=== PATIENT | female | born 1965 | race Caucasian/White ===

== ENCOUNTER 2024-06-24 22:12 | Emergency (ER) | payer MEDICAID, SELFPAY ==
[2024-06-24 22:14] VITALS: BP 134/109; PULSE 92; RESP 22; TEMP 36.1; O2SAT 99
--- NOTE | 2024-06-24 22:17 | ED.GENADUL_ITS ---
Discharge Plan Disposition Patient Disposition: Home Condition: Good Discharge Details Clinical Impression: Encounter for removal of nasal packing Primary Care Provider: Unknown,Unknown ED Provider: Lester Sunshine Home Meds and New Rx's Prescriptions: No Action No Known Home Meds Discharge Instructions Instructions: Nosebleeds ED Additional Instructions: Please follow-up with ENT as scheduled. Short-term you should use saline nasal spray and antibiotic ointment as we discussed to keep the nasal mucosal membranes from drying out. Hold pressure as shown for 10 to 15 minutes for rebleeding. Return to ED for prolonged uncontrolled bleeding or other concerns. HPI General Mode of arrival: ambulatory . Date/Time Provider Initiated Documentation: 06/24/24 22:17 . Limitations to Documentation: no limitations . Information obtained by: patient and RN notes reviewed . HPI Narrative: Patient presents to ED with complaint of recurrent nosebleed. Patient was seen at [facility] on Thursday, 5 days ago. She had Merosel packing placed. Packing is still in place and she reports no ENT follow-up until sometime in July. She reports that there is been some blood trickling down the back of her throat at times. She was brought in by her daughter for a recheck. Denies any fever, facial pain, headache. She is not on anticoagulation. Related Data Home Medications ?Medication ?Instructions ?Recorded ?Confirmed Unknown [No Known Home Meds] 06/24/24 06/24/24 Allergies Allergy/AdvReac Type Severity Reaction Status Date / Time Penicillins Allergy Unknown Unknown Verified 06/24/24 22:17 General Stated Complaint: Epistaxis LUL: 3 Review of Systems Narrative: Per HPI Exam Narrative Exam Narrative: Const: WDWN female in NAD. VS per triage. HEENT: NC/AT. Normal facial exam. Right nostril with packing in place. Left nostril unremarkable. Posterior oropharynx clear with no evidence of active bleeding. Neck: Supple. Trachea midline. Lungs: Normal respiratory effort. Neuro: A+O x 3. Normal speech, mentation. Cranial nerves II - XII grossly intact. No gross motor or sensory deficit. Course Vital Signs Vital signs: Vital Signs Temperature 97 F L 06/24/24 22:14 Pulse 92 H 06/24/24 22:14 Respiratory Rate 22 06/24/24 22:14 Blood Pressure 134/109 H 06/24/24 22:14 Pulse Oximetry 99 06/24/24 22:14 Temperature 97 F L 06/24/24 22:14 Temperature Source Temporal Artery Scan 06/24/24 22:14 Pulse 92 H 06/24/24 22:14 Respiratory Rate 22 06/24/24 22:14 Blood Pressure 134/109 H 06/24/24 22:14 Blood Pressure Position Sitting 06/24/24 22:14 Pulse Oximetry 99 06/24/24 22:14 Oxygen Delivery Method Room Air 06/24/24 22:14 Oxygen Flow Rate 0 06/24/24 22:14 Pain Level 0 06/24/24 22:14 Medical Decision Making Patient presenting to ED with packing in the right nostril. This has been in there for 5 days now. There is no evidence of active bleeding. There is no fever, headache, sinus pain or pressure. Packing removed by me. No active bleeding. Will observe for 20 to 30 minutes prior to discharge. No further bleeding. Inspection of the right nostril with no obvious area of pr evious bleeding. Recommend saline nasal spray, gentle application of antibiotic ointment, follow-up to ENT. Return precautions provided. PFSH All Active Problems (Updated 06/24/24 @ 22:52 by Lester Sunshine MD) Encounter for removal of nasal packing (Acute) Social History Smoking/Tobacco Use Status: Current every day Tobacco: How many years used: 20 Quit status: considering quitting Smoking risk assessment performed?: Yes Alcohol Intake: current Alcohol type: wine and hard liquor Substance use type: marijuana Seatbelt use: sometimes Do you feel safe at home: Yes Do you feel safe in your relationship?: Yes
[2024-06-24 22:56] VITALS: BP 107/69; PULSE 90; RESP 18; O2SAT 98
== END 2024-06-24 22:57 | disposition home or self-care (01) ==
LOC: ER 22:59
PROVIDERS: Emergency Provider Emergency Medicine
DX: R04.0 Epistaxis (principal); F17.200 Nicotine dependence, unspecified, uncomplicated
CPT/HCPCS: 99282

== ENCOUNTER 2025-01-16 19:14 | Emergency (ER) | payer MEDICAID, SELFPAY ==
[2025-01-16 19:16] VITALS: BP 151/83; PULSE 85; RESP 18; TEMP 36.1; O2SAT 98
--- NOTE | 2025-01-16 19:44 | ED.GENADUL_ITS ---
Discharge Plan Disposition Patient Disposition: Home Condition: Stable Discharge Details Clinical Impression: Bleeding gums, Thrombocytopenia Primary Care Provider: Unknown,Unknown ED Provider: Manuel Alexander Home Meds and New Rx's Prescriptions: New clindamycin HCl 150 mg capsule 450 mg PO TID 7 Days Qty: 63 0RF chlorhexidine gluconate [Paroex Oral Rinse] 0.12 % mouthwash 15 ml mucous membrane BID 14 Days Qty: 1893 0RF Discontinued ciprofloxacin HCl 500 mg tablet 500 mg PO BID Discharge Instructions Additional Instructions: Your platelet count was low which is likely due to chronic alcohol use. Try to cut back or stop drinking alcohol can improve this. I would recommend following up with your primary care provider and having your CBC blood test rechecked. Follow-up with a dentist as well. If you feel more ill or have new symptoms such as diffuse rashes, severe headaches or chest pain return to the emergency department for reevaluation. HPI General Mode of arrival: ambulatory . Date/Time Provider Initiated Documentation: 01/16/25 19:28 . Limitations to Documentation: no limitations . Information obtained by: patient . History of Present Illness 59 year old F presents to the emergency department with the chief complaint of gingival bleeding, described as moderate, Quality is described as aching, Patient started experiencing this week(s) (1) and it has been intermittent. No relieving factors improve symptom(s), No exacerbating factors reported . Patient notes no other symptoms.. Patient did receive the following treatments prior to arrival, none Related Data Home Medications ?Medication ?Instructions ?Recorded ?Confirmed chlorhexidine gluconate 0.12 % 15 ml mucous membrane B ID 14 days 01/16/25 mouthwash (Paroex Oral Rinse) #1,893 mL clindamycin HCl 150 mg capsule 450 mg (3 x 150 mg) PO TID 7 days 01/16/25 #63 caps Previous Rx's ?Medication ?Instructions ?Recorded chlorhexidine gluconate 0.12 % 15 ml mucous membrane B ID 14 days 01/16/25 mouthwash (Paroex Oral Rinse) #1,893 mL clindamycin HCl 150 mg capsule 450 mg (3 x 150 mg) PO TID 7 days 01/16/25 #63 caps Allergies Allergy/AdvReac Type Severity Reaction Status Date / Time Penicillins Allergy Unknown Unknown Verified 01/16/25 19:22 General Stated Complaint: GenMedical LUL: 3 Review of Systems All systems reviewed & are unremarkable except as noted in HPI and below Constitutional Constitutional: Denies chills, Denies fever(s) and Denies weakness Cardiovascular Cardiovascular: Denies chest pain and Denies dyspnea Respiratory Respiratory: Denies cough and Denies dyspnea Gastrointestinal Gastrointestinal: Denies abdominal pain, Denies nausea and Denies vomiting Neurologic Neurologic: Denies weakness Exam Const General: no acute distress Orientation: alert HENMT Head: normal to inspection Ears: external ears normal General nose exam: external nose normal Mouth: moist mucous membranes Teeth and gingiva: abnormal dentition Eyes General: appearance normal, both eyes and all related structures Neck Neck: normal visual inspection Resp Effort & Inspection: normal respiratory effort and able to speak in complete sentences Cardio Rate: regular rate Skin General skin exam: no rashes or lesions noted Neuro General: patient alert and patient oriented x3 Extrem General: normal to inspection Psych Mental Status: mental status grossly normal Course Vital Signs Vital signs: Vital Signs Temperature 36.1 C L 01/16/25 19:16 Pulse 85 01/16/25 19:16 Respiratory Rate 18 01/16/25 19:16 Blood Pressure 151/83 H 01/16/25 19:16 Pulse Oximetry 98 01/16/25 19:16 Temperature 36.1 C L 01/16/25 19:16 Temperature Source Temporal Artery Scan 01/16/25 19:16 Pulse 85 01/16/25 19:16 Respiratory Rate 18 01/16/25 19:16 Blood Pressure 151/83 H 01/16/25 19:16 Blood Pressure Position Sitting 01/16/25 19:16 Pulse Oximetry 98 01/16/25 19:16 Oxygen Delivery Method Room Air 01/16/25 19:16 Oxygen Flow Rate 0 01/16/25 19:16 Pain Level 0 01/16/25 19:16 Medical Decision Making 59-year-old female who states she has 4-5 alcoholic beverages per day comes in with 1 week of intermittent bleeding from her gums. She denies any high fevers or nausea vomiting or trauma to the face. She is stable on arrival. She has numerous dental caries and appears to have a half a centimeter soft tissue mass on the right upper gum that is not actively bleeding. It is soft and nontender. Her gums do appear hyperemic. There is no active bleeding. I suspect gingivitis will have her do chlorhexidine rinses and also place her on clindamycin as she has an amoxicillin allergy and advised to follow-up with her dentist for dental care and also potentially biopsying her left tissue mass on her gum. Check CBC to evaluate for possible significant thrombocytopenia given her alcohol abuse. Patient has not had recurrent bleeding. She has thrombocytopenic. She has no petechiae purpura on is otherwise asymptomatic other than intermittent interval bleeding so I doubt entities such as TTP, ITP, DIC. I suspect she has thrombocytopenia from her chronic alcohol use. I discussed the results with her and she is stable. I did offer observation admission potential for further workup as an inpatient but she declines as she is currently asymptomatic and I feel this is reasonable. She is can follow-up with the PCP and also a dentist. Return precautions given Differential Diagnosis Differential Diagnosis: Gingivitis, dental caries PFSH All Active Problems (Updated 01/16/25 @ 21:16 by Manuel Alexander MD) Thrombocytopenia (Chronic) Bleeding gums (Acute) Anterior epistaxis (Acute) Surgical History (Updated 07/04/24 @ 07:31 by Alton Marie MD) History of bilateral tubal ligation Social History Smoking/Tobacco Use Status: Current every day Tobacco Type: cigarettes Tobacco: How many years used: 20 Quit status: considering quitting Smoking risk assessment performed?: Yes Alcohol Intake: current Alcohol Intake frequency: 3 or more drinks per day Alcohol type: wine and hard liquor Drug use: Occasionally Substance use type: marijuana Details: did drink today prior to coming in Seatbelt use: sometimes Do you feel safe at home: Yes Do you feel safe in your relationship?: Yes PAWSS Have you Been Recently Intoxicated or Drunk Within the Last 30 days?: Yes Have you Ever Experienced Previous Episodes of Alcohol Withdrawal?: No Have you ever Experienced Withdrawal Seizures?: No Have you ever Experienced Delirium Tremens(DT)s?: No Have you ever undergone Alcohol Rehabilitation Treatment (i.e, inpt ot outpatient treatment programs)?: No Have you ever Experienced Blackouts?: No Have you ever Combined Alcohol with other Downers within the last 90 days?: No Have you ever Combined Alcohol with any other Substance of Abuse during the last 90 days?: No Positive Blood Alcohol level on Presentation? [PCS.BAL]: Yes Evidence of Increased Autonomic Activity (i.e. HR>120, tremor, sweating, agitation, nausea)?: No Result: 2
[2025-01-16] MEDS: Clindamycin 150 MG CAP 450 MG PO (20:00)
[2025-01-16 20:02] LABS: Abs Immature Grans 0.01 10^3/uL (0.0-0.06); HCT 31.8 % (36.0-46.0); HGB 11.3 g/dL (11.2-15.7); Immature Grans % 0.2 %; MCH 32.8 pg (27.0-33.0); MCHC 35.5 % (32.0-36.0); MCV 92 fL (80-95); MPV 10.3 fL (8.0-11.0); RBC 3.45 10^6/uL (3.93-5.22); RDW 13.6 % (11.7-14.6); RDW-SD 46.0 fL; WBC 5.28 10^3/uL (4.4-10.8)
[2025-01-16] MEDS: Chlorhexidine Gluconate 0.12% Mouthwash 15 ML BTL MM (20:10)
[2025-01-16 20:20] LABS: Platelet Count 30 10^3/uL (130-400)
[2025-01-16 20:21] VITALS: RESP 16
[2025-01-16 20:58] VITALS: BP 148/82; PULSE 86; RESP 16; O2SAT 96
== END 2025-01-16 21:23 | disposition home or self-care (01) ==
PROVIDERS: Emergency Provider Emergency Medicine
DX: D69.6 Thrombocytopenia, unspecified (principal); K06.8 Other specified disorders of gingiva and edentulous alveolar ridge
CPT/HCPCS: 99283 ×2; 36415; 85025